=== PATIENT | female | born 1935 | race Caucasian/White ===

== ENCOUNTER → 2016-10-15 16:57 | Outpatient (CLI) | payer MEDICARE, OTHER ==
[2012-01-29 12:42] VITALS: BMI 32.0
== END | disposition home or self-care (01) ==
LOC: D.MAMMO 14:45
DX: Z12.31 Encounter for screening mammogram for malignant neoplasm of breast (principal)

== ENCOUNTER 2017-05-12 06:54 | Emergency (ER) | payer MEDICARE, OTHER ==
[2012-01-29 12:42] VITALS: BMI 32.0
== END 2017-05-12 10:55 | disposition home or self-care (01) ==
LOC: D.ER 06:54
DX: S42.201A Unspecified fracture of upper end of right humerus, initial encounter for closed fracture (principal); W10.9XXA Fall (on) (from) unspecified stairs and steps, initial encounter; Y93.89 Activity, other specified; Y92.239 Unspecified place in hospital as the place of occurrence of the external cause; S09.90XA Unspecified injury of head, initial encounter

== ENCOUNTER 2017-11-18 19:46 | Emergency (ER) | payer MEDICARE, OTHER ==
[2012-01-29 12:42] VITALS: BMI 32.0
== END 2017-11-18 22:10 | disposition home or self-care (01) ==
LOC: D.ER 19:46
DX: S42.302A Unspecified fracture of shaft of humerus, left arm, initial encounter for closed fracture (principal); W19.XXXA Unspecified fall, initial encounter; Y93.89 Activity, other specified; Y92.019 Unspecified place in single-family (private) house as the place of occurrence of the external cause

== ENCOUNTER → 2017-11-21 12:13 | Outpatient (CLI) | payer MEDICARE, OTHER ==
[2012-01-29 12:42] VITALS: BMI 32.0
== END | disposition home or self-care (01) ==
LOC: D.CT 12:13
DX: S42.202A Unspecified fracture of upper end of left humerus, initial encounter for closed fracture (principal); X58.XXXA Exposure to other specified factors, initial encounter; Y93.89 Activity, other specified; Y92.89 Other specified places as the place of occurrence of the external cause